=== PATIENT | female | born 1980 | race African-American/Black ===

== ENCOUNTER 2017-12-19 14:38 | Emergency (ER) | payer MEDICARE, MEDICAID ==
[~2017-12-19] VITALS: Ht 165.1 cm; Wt 104.0 kg
[~2017-12-19 14:38] MED LIST: ALBUTEROL INH; AMLODIPINE PO; HYDROCODONE PO; NAPR-681 PO
[2017-12-19] MEDS ORDERED: LORATADINE/PSEUDOEPHED 5/120MG TABLET 12HR PO ONE (19:00)
[2017-12-19] MEDS ORDERED: IBUPROFEN 800MG TABLET PO ONE (19:00)
[2017-12-19 19:33] VITALS: BP 122/82
== END 2017-12-19 21:00 | disposition home or self-care (01) ==
LOC: ER 14:38
DX: S63.591A Other specified sprain of right wrist, initial encounter (principal); J30.9 Allergic rhinitis, unspecified; X58.XXXA Exposure to other specified factors, initial encounter; Y93.59 Activity, other involving other sports and athletics played individually; Y92.89 Other specified places as the place of occurrence of the external cause; Y99.8 Other external cause status; J45.909 Unspecified asthma, uncomplicated; Z90.49 Acquired absence of other specified parts of digestive tract; Z98.890 Other specified postprocedural states; Z86.11 Personal history of tuberculosis
CPT/HCPCS: 29125; 73110; 81025; 99284

== ENCOUNTER 2018-05-13 15:53 | Emergency (ER) | payer MEDICARE, MEDICAID ==
[~2018-05-13] VITALS: Ht 162.6 cm; Wt 104.5 kg
[2018-05-13] MEDS ORDERED: SODIUM CHLORIDE 0.9% 1,000 ML IV ONE (23:43)
[2018-05-13] MEDS ORDERED: METOCLOPRAMIDE HCL 10MG/2ML VIAL IV ONE (23:45)
[2018-05-13] MEDS ORDERED: DIPHENHYDRAMINE 50MG/ML VIAL IV ONE (23:45)
[2018-05-14 00:36] LABS: BASOPHILS % 0.3 % (0.0-2.0); EOSINOPHILS % 0.1 % (0.0-5.0); HEMATOCRIT. 40.1 % (36.0-48.0); HEMOGLOBIN. 13.1 g/dL (12.0-16.0); MEAN CORPUSCULAR HEMOGLOBIN 27.8 pg (28.0-32.0); MEAN CORPUSCULAR VOLUME 85.3 fL (81.0-99.0); MEAN PLATELET VOLUME 8.3 fl (7.4-10.4); NEUTROPHILS % 87.6 % (40.0-76.0); PLATELET 246 x1000/uL (130-400)
[2018-05-14 00:42] LABS: CHLORIDE 109 mEq/L (98-107)
[2018-05-14 04:42] VITALS: BP 107/66
== END 2018-05-14 05:18 | disposition home or self-care (01) ==
LOC: ER 15:53
DX: R51 Headache (principal); I10 Essential (primary) hypertension; J45.909 Unspecified asthma, uncomplicated; Z90.49 Acquired absence of other specified parts of digestive tract; Z87.891 Personal history of nicotine dependence
CPT/HCPCS: 36415; 70450; 71045; 80053; 85025; 93005; 96361; 96374; 96375; 99284; J1200; J2765; J7030

== ENCOUNTER 2022-05-25 13:48 | Emergency (ER) | payer BC, MEDICAID ==
[~2022-05-25] VITALS: Ht 170.2 cm; Wt 68.0 kg
[~2022-05-25 13:48] MED LIST changes: -HYDROCODONE PO; -NAPR-681 PO
[2022-05-25] MEDS ORDERED: IPRATROPIUM BROMIDE (0.02%) 0.5MG/2.5ML NEB HHN STA (14:02)
[2022-05-25] MEDS ORDERED: PREDNISONE 20MG TABLET PO STA (14:02)
[2022-05-25] MEDS ORDERED: ALBUTEROL (0.083%) 2.5MG/3ML NEB HHN STA (14:02)
[2022-05-25] MEDS ORDERED: ALBUTEROL 6.7GM HFA INHALER ORI ONE (14:45)
[2022-05-25] MEDS ORDERED: LORAZEPAM 0.5MG TABLET PO ONE (14:45)
[2022-05-25 15:12] LABS: CHLORIDE 105 mEq/L (98-107)
[2022-05-25 15:16] LABS: BASOPHILS % 0.7 % (0.0-2.0); EOSINOPHILS % 3.7 % (0.0-5.0); HEMATOCRIT. 39.9 % (36.0-48.0); HEMOGLOBIN. 13.4 g/dL (12.0-16.0); LYMPHOCYTES % 28.4 % (20.0-50.0); MEAN CORPUSCULAR HEMOGLOBIN 28.4 pg (28.0-32.0); MEAN CORPUSCULAR VOLUME 84.3 fL (81.0-99.0); MEAN PLATELET VOLUME 7.9 fl (7.4-10.4); MONOCYTES % 8.6 % (2.0-8.0); NEUTROPHILS % 58.6 % (40.0-76.0); PLATELET 286 x1000/uL (130-400); RED BLOOD CELL COUNT 4.73 mill/uL (4.2-5.4); RED CELL DISTRIBUTION WIDTH 13.8 % (11.6-14.6)
[2022-05-25 15:36] VITALS: BP 127/84
[2022-05-25 15:39] LABS: HCG SCREEN NEGATIVE
[2022-05-25] MEDS ORDERED: ALBU6.7H3 INH (15:57)
== END 2022-05-25 16:32 | disposition home or self-care (01) ==
LOC: ER 13:48
DX: R06.02 Shortness of breath (principal); F41.9 Anxiety disorder, unspecified; J45.909 Unspecified asthma, uncomplicated; I10 Essential (primary) hypertension; Z20.822 Contact with and (suspected) exposure to COVID-19; Z90.49 Acquired absence of other specified parts of digestive tract
CPT/HCPCS: 36415; 71045; 80053; 83880; 84484; 84703; 85025; 85379; 87426; 87804; 93005; 99285; C9803